=== PATIENT | male | born 1955 | race Caucasian/White ===

== ENCOUNTER 2018-12-29 08:47 | Day surgery (SDC) | payer SELFPAY ==
[2018-12-29] VITALS (7 sets, daily range): BP systolic 92–142; BP diastolic 43–83; PULSE 60–69; RESP 12–16; TEMP 36.3–36.7; O2SAT 94–99
[2018-12-29] MEDS: Lactated Ringers 1,000 ML 125 ML IV (09:45)
[2018-12-29] MEDS: Gabapentin 300 MG CAP PO (10:24)
[2018-12-29] MEDS: Acetaminophen 500 MG TAB 1000 MG PO (10:25)
[2018-12-29] MEDS: ceFAZolin 1 GM/50 ML BAG IVPB (11:04)
[2018-12-29] MEDS: Bupivacaine 0.25% Pres-Free 30 ML VIAL (11:10)
[2018-12-29] MEDS: Bupivacaine LIPOSOME/PF 133 MG/10 ML VIAL IJ (11:10)
--- NOTE | 2018-12-29 12:05 | W.PM.DSUDISC ---
Discharge Plan Disposition Patient Disposition: HOME Condition: Good Discharge Details Reason For Visit: left inguinal hernia repair Attending Provider: Isabel Starks Primary Care Provider: None,None Home Meds and New Rx's Prescriptions: New ibuprofen 600 mg tablet 600 mg PO QID PRN (Reason: pain) Qty: 90 RF: 2 oxycodone-acetaminophen [Percocet] 5-325 mg tablet 1 tab PO Q6H PRN (Reason: pain) Qty: 10 RF: 0 Discharge Instructions Additional Instructions: Dr. Starks HERNIA REPAIR ? POSTOPERATIVE INSTRUCTIONS ? The MESH PLUG surgery for hernia repair allows the patient to return to normal activities at an early date. Patients who have this type of surgery can usually be expected to return to work within two weeks and have minimal amounts of discomfort. ? ACTIVITY: The day of surgery should be spent resting. However, you can be up for short periods of time, I.E., going to the bathroom or kitchen. Avoid lifting or straining. On the day following surgery, you can be up and about as desired. ? LIFTING: Restrict your lifting to no more than five (5) pounds for the first week following surgery. ? DIET: There are no dietary restrictions following surgery. However, you may want to start with small amounts of liquids to avoid nausea the day of surgery. ? INCISION CARE: A dressing covers your incision. After 24 hours you may shower and apply a clean dressing over the strips of tape. The dressing may be replaced as necessary. Use an ice bag, apply to the incision for 72 hours following surgery. ? SIGNS OF INFECTION: It is not unusual to have some black and blue discoloration of the skin around the incision. It will slowly disappear. If you have any increased redness, drainage, fever (above 100 degrees), please contact your doctor for an examination. ? DISCOMFORT: You may expect to have some mild discomfort at the incision sight. If severe pain develops you should contact your doctor for further instructions. ? URINATION: Patients who have surgery occasionally have problems urinating. If you experience problems and are not able to urinate within 6 hours following your surgery, please call your doctor immediately or go to your nearest Emergency Room for evaluation. ? DRIVING: NO driving for five (5) days after surgery ? MEDICATIONS: You have been given a prescription for pain. If you are taking pain medication, follow the instructions on the label and do not drive. Some patients have conditions that require antibiotics, please follow the instructions on the label and take all of the antibiotics. Pain medications can make you very constipated. Make sure you are moving your bowels daily. If not, take Miralax, milk of magnesia or magnesium citrate. Take a dose of milk of magnesia your first day after surgery. ? REPORT: Unusual swelling, severe pain, unresolved nausea, signs of infection, or difficulty in urination to your surgeon. Follow up in clinic with Dr. Starks in 1-2 weeks. Activity:: as above Remove Dressings/Wound Care:: 24 hours Shower/Bathe:: 24 hours Diet:: As Tolerated Discharge Orders Discharge Orders: Discharge Order (Routine); Ordered 12/29/18 Ordered By: Isabel Starks DS: Diagnosis Discharge Diagnosis (1) Left inguinal hernia: Status: Acute
--- NOTE | 2018-12-29 12:12 | W.PM.OP ---
Date of service: 12/29/18 Time of Service: 12:12 Operative Note Operative Note DATE OF PROCEDURE: 12/29/18 PRE-OP DIAGNOSIS: left inguinal hernia -indirect POST-OP DIAGNOSIS: same PROCEDURE: open repair w/ mesh SURGEON: Isabel Armstrong ASSISTING SURGEON: Lily Peace ANESTHESIA: GETA ESTIMATED BLOOD LOSS: 5 PATHOLOGY: none sent COMPLICATIONS: None Patient was transported to: PACU Patient's condition: stable Implants: bard mesh perfix plug lot #[id number] Indications: pain Procedure Description: INDICATIONS: regarding symptomatic left inguinal hernia that has failed outpatient conservative medical management and he is here today for repair. Informed consent was obtained, explaining risks and benefits of the procedure including but not limited to bleeding, infection, pneumonia, blood clots, chronic pain, chronic numbness, damage to testicle resulting in removal, recurrence, reaction to Mesh necessitating removal, and other unforetold complications and complications of anesthesia. The patient is marked in preop. DESCRIPTION OF PROCEDURE: was brought to the operative room suite. Anesthesia was administered per the Department of Anesthesia. The patient was prepped and draped in the usual sterile fashion using ChloraPrep scrub solution. Pause for the cause was done. He did receive preop IV antibiotics, 30 mL of 1% buffered lidocaine was used for local anesthetization. A #12 blade was used to make an incision over the external ring. Electrocautery used to provide hemostasis and dissect down to the fascia. The fascia was pretty much obliterated and there was nothing to open. The cord is elevated. The nerve was not identified. There are two very large cord lipomas. These are dissected off and cautery is used to provide hemostasis. A Dwale drain was placed around the cord to assist in mobilization. The cord was explored. There was no hernia sac on the cord. There is a very large direct hernia pushing through the floor. The transversalis in this area is pretty much obliterated. The sac is elevated and scored and inverted. A large mesh plug was then placed into the defect and oversewn into transversalis. The patch was then placed on the floor and sewn in using 2-0 Vicryl sewn into the pubic tubercle and the shelving portions of the inguinal ligament. There was really no external oblique to really reapproximate. Some is identified and dissected off and brought around the very superior portion of the cord and oversewn again with 2-0 Vicryl. The wound was copiously irrigated. There was no bleeding noted. The drain was placed. All structures are returned to normal anatomical position. Deep tissue was approximated with 3-0 Vicryl and skin was approximated with 4-0 Monocryl in a running subcuticular fashion. Steri tapes and sterile dressings are applied. The patient tolerated the procedure without complications to recovery in stable condition. ISABEL ARMSTRONG, DO
== END 2018-12-29 14:00 | disposition home or self-care (01) ==
PROVIDERS: Visit Provider Surgery
PROC: (CPT 49505; principal; 2018-12-29 10:00)
DX: K40.90 Unilateral inguinal hernia, without obstruction or gangrene, not specified as recurrent (principal); D17.6 Benign lipomatous neoplasm of spermatic cord; G89.18 Other acute postprocedural pain
CPT/HCPCS: 49505; 76942; C1781; J0690; J1100; J2405

== ENCOUNTER 2021-04-05 15:40 | Outpatient (REF) | payer SELFPAY ==
[2021-04-05 21:45] LABS: Abs Immature Grans 0.02 10^3/uL (0.0-0.06); Absolute Basophil Count 0.02 10^3/uL (0.0-0.2); Absolute Eosinophil Count 0.03 10^3/uL (0.0-0.7); Absolute Lymphocyte Count 1.74 10^3/uL (1.2-3.4); Absolute Monocyte Count 0.91 10^3/uL (0.1-0.8); Absolute Neutrophil Count 3.41 10^3/uL (1.2-6.7); Basophils % 0.3; Eosinophils % 0.5; HGB 13.2 g/dL (13.5-17.5); Immature Grans % 0.3; Lymphocytes % 28.4; MCH 28.7 pg (27.0-33.0); MCHC 31.4 % (32.0-36.0); MCV 91.3 fL (80-95); Monocytes % 14.8; Neutrophils % 55.7; Nucleated RBC 0 %; Platelet Count 220 10^3/uL (130-400); RDW 13.1 % (11.8-14.1); WBC 6.13 10^3/uL (4.4-10.8)
[2021-04-05 21:54] LABS: ALT 43 U/L (16-63); AST 31 U/L (15-37); Albumin 3.7 g/dL (3.4-5.0); Alkaline Phosphatase 76 U/L (46-116); Anion Gap 8.7 mmol/L (3-11); BUN 20 mg/dL (7-18); Bilirubin, Total 0.3 mg/dL (0.2-1.0); CO2 25.3 mmol/L (21.0-32.0); CREATININE 1.4 mg/dL (0.70-1.30); Calcium 8.7 mg/dL (8.5-10.1); Calculated LDL 132 mg/dL (<100); Chloride 102 mmol/L (98-107); Cholesterol 194 mg/dL (<200); Estimated GFR 51.02 (mL/min/1.73m2); Glucose 103 mg/dL (74-106); HDL Cholesterol 50 mg/dL (40-60); Potassium 4.5 mmol/L (3.5-5.1); Sodium 136 mmol/L (136-145); Total Protein 7.3 g/dL (6.4-8.2); Triglyceride 63 mg/dL (<150)
[2021-04-07 20:06] LABS: COVID-19 RT-PCR UVMMC Result Positive (Negative)
== END 2021-04-05 15:41 | disposition home or self-care (01) ==
LOC: NCHCN 15:40
PROVIDERS: Visit Provider Registered Nurse
DX: R50.9 Fever, unspecified (principal); R19.7 Diarrhea, unspecified; Z20.822 Contact with and (suspected) exposure to COVID-19; Z13.220 Encounter for screening for lipoid disorders
CPT/HCPCS: 80053; 80061; U0003; 85025

== ENCOUNTER 2021-04-06 11:07 | Outpatient (REF) | payer SELFPAY ==
[2021-04-06 15:49] LABS: C Diff PCR Negative (Negative)
[2021-04-07 11:41] LABS: Campylobacter PCR Negative (Negative); Salmonella PCR Negative (Negative); Shiga Toxin PCR Negative (Negative); Shigella/Enteroinvasive Ecoli Negative (Negative)
== END 2021-04-06 11:08 | disposition home or self-care (01) ==
LOC: NCHCN 11:07
PROVIDERS: Visit Provider Registered Nurse
DX: R19.7 Diarrhea, unspecified (principal)
CPT/HCPCS: 87329; 87493; 87505; 83630

== ENCOUNTER 2021-07-03 08:37 | Outpatient (REF) | payer SELFPAY ==
[2021-07-03 21:34] LABS: Calculated LDL 127 mg/dL (<100); Cholesterol 214 mg/dL (<200); HDL Cholesterol 66 mg/dL (40-60); Triglyceride 108 mg/dL (<150)
== END 2021-07-03 08:38 | disposition home or self-care (01) ==
LOC: NCHCN 08:37
PROVIDERS: Visit Provider Internal Medicine
DX: E78.5 Hyperlipidemia, unspecified (principal)
CPT/HCPCS: 80061